=== PATIENT | male | born 1945 | race Caucasian/White ===

== ENCOUNTER 2019-07-12 19:04 | Emergency (ER) | payer MEDICARE ==
[~2019-07-12] VITALS: Ht 180.3 cm; Wt 95.0 kg
[2019-07-12] MEDS ORDERED: LIDOCAINE-MPF 1%, 5ML ONE (20:19)
[2019-07-12] MEDS ORDERED: DIPH,PERTUSS(ACELL),TET VAC/PF 0.5 ML IM-VACC ONE ×2 (20:30)
[2019-07-12] MEDS ORDERED: LIDOCAINE 1%, 10ML INFIL ONE (20:30)
--- NOTE | 2019-07-12 20:40 | NUR ---
PTS EXPRESSED CONCERN ABOUT THE PTS HEALTH HE IS A DAILY HEAVY DRINKER. THIS WAS DISCUSSED WITH PA. AWAITING ORDERS.
[2019-07-12 20:54] LABS: BASOPHILS # (AUTO) 0.06 x10^3/uL (0-0.1); BASOPHILS % (AUTO) 1 % (0-1); EOSINOPHILS # (AUTO) 0.16 x10^3/uL (0-0.4); EOSINOPHILS % (AUTO) 1 % (1-7); LYMPHOCYTES # (AUTO) 2.37 x10^3/uL (1-3.4); LYMPHOCYTES % (AUTO) 19 % (22-44); MD NO; MEAN CORPUSCULAR HEMOGLOBIN 33.1 pg (27.5-34.5); MEAN CORPUSCULAR HGB CONC 33.8 g/dL (33.2-36.2); MEAN CORPUSCULAR VOLUME 98.1 fL (81-97); MEAN PLATELET VOLUME 6.5 fL (7.4-10.4); MONOCYTES # (AUTO) 0.98 x10^3/uL (0.2-0.8); MONOCYTES % (AUTO) 8 % (2-9); NEUTROPHILS # (AUTO) 8.97 x10^3/uL (1.8-6.8); NEUTROPHILS % (AUTO) 72 % (42-75); PLATELET COUNT 294 x10^3/uL (130-400); RED BLOOD COUNT 4.87 x10^6/uL (4.38-5.82); RED CELL DISTRIBUTION WIDTH 13.1 % (9.4-14.8)
[2019-07-12 21:04] LABS: ALANINE AMINOTRANSFERASE 42 U/L (12-78); ALBUMIN 3.8 g/dL (3.4-5.0); ANION GAP 7 mmol/L (5-15); CALCIUM 8.1 mg/dL (8.5-10.1); CHLORIDE 107 mmol/L (98-107); CREATININE 0.72 mg/dL (0.7-1.3)
[2019-07-12 21:05] LABS: INTERNATIONAL NORMALIZED RATIO 1.09 (0.93-1.1); PROTHROMBIN TIME 11.4 Seconds (9.6-11.5)
[2019-07-12 21:07] LABS: ALKALINE PHOSPHATASE 61 U/L (45-117); BILIRUBIN,TOTAL 0.5 mg/dL (0.2-1.0)
--- NOTE | 2019-07-12 21:13 | NUR ---
PA AT BEDSIDE FOR SUTURES
--- NOTE | 2019-07-12 21:44 | NUR ---
PT UP FOR RECHECK AT THIS TIME.
--- NOTE | 2019-07-12 22:00 | NUR ---
PT REQUESTING TO LEAVE. PT MD NEED ROAD TEST. PT ROADTESTED AND PASSED. POC DISCUSSED. AWAITING DC PAPERWORK
[2019-07-12 22:07] VITALS: BP 139/88
== END 2019-07-12 22:09 | disposition home or self-care (01) ==
LOC: ED 22:02
DX: S01.81XA Laceration without foreign body of other part of head, initial encounter (principal); E78.00 Pure hypercholesterolemia, unspecified; I10 Essential (primary) hypertension; F10.220 Alcohol dependence with intoxication, uncomplicated; F17.200 Nicotine dependence, unspecified, uncomplicated; W01.0XXA Fall on same level from slipping, tripping and stumbling without subsequent striking against object, initial encounter; Y93.89 Activity, other specified; Y92.410 Unspecified street and highway as the place of occurrence of the external cause; Y99.8 Other external cause status
CPT/HCPCS: 12051; 36415; 80053; 80307; 85025; 85610; 85730; 90471; 90715; 93005

== ENCOUNTER → 2020-03-20 | Outpatient (CLI) | payer MEDICARE | END | disposition home or self-care (01) | LOC: CVU 14:32 | PROVIDERS: ATTEND Family Medicine | DX: I73.9 Peripheral vascular disease, unspecified (principal); I10 Essential (primary) hypertension; E78.5 Hyperlipidemia, unspecified; R20.0 Anesthesia of skin | CPT/HCPCS: 93922 ==

== ENCOUNTER → 2020-05-13 | Outpatient (CLI) | payer MEDICARE | END | disposition home or self-care (01) | LOC: CVU 12:20 | PROVIDERS: ATTEND Internal Medicine Clinical Cardiac Electrophysiology | DX: I11.9 Hypertensive heart disease without heart failure (principal); E78.00 Pure hypercholesterolemia, unspecified; I65.23 Occlusion and stenosis of bilateral carotid arteries; Z72.0 Tobacco use | CPT/HCPCS: 93306; 93356; 93880; 93978 ==

== ENCOUNTER 2020-06-16 12:52 | Outpatient (CLI) | payer MEDICARE | END 2020-06-16 23:59 | disposition home or self-care (01) | LOC: CFH 12:52 | PROVIDERS: ATTEND Internal Medicine Clinical Cardiac Electrophysiology | DX: I10 Essential (primary) hypertension (principal); R60.9 Edema, unspecified; Z72.0 Tobacco use | CPT/HCPCS: 78452; 93017; A9502 ==

== ENCOUNTER 2021-02-09 04:36 | Emergency (ER) | payer MEDICARE ==
[~2021-02-09] VITALS: Ht 182.9 cm; Wt 100.0 kg
[2021-02-09 05:18] LABS: BASOPHILS % (AUTO) 1 % (0-1); EOSINOPHILS % (AUTO) 2 % (1-7); LYMPHOCYTES % (AUTO) 30 % (22-44); MEAN CORPUSCULAR HEMOGLOBIN 32.5 pg (27.5-34.5); MEAN CORPUSCULAR HGB CONC 34.7 g/dL (33.2-36.2); MONOCYTES % (AUTO) 11 % (2-9); NEUTROPHILS % (AUTO) 57 % (42-75); PLATELET COUNT 223 x10^3/uL (130-400); RED BLOOD COUNT 4.88 x10^6/uL (4.38-5.82); RED CELL DISTRIBUTION WIDTH 13.5 % (9.4-14.8)
[2021-02-09 05:19] LABS: MD NO
[2021-02-09 05:30] LABS: ALANINE AMINOTRANSFERASE 70 U/L (12-78); ALBUMIN 3.6 g/dL (3.4-5.0); ANION GAP 11 mmol/L (5-15); CALCIUM 7.9 mg/dL (8.5-10.1); CHLORIDE 105 mmol/L (98-107)
[2021-02-09 05:33] LABS: ALKALINE PHOSPHATASE 50 U/L (45-117); BILIRUBIN,TOTAL 0.4 mg/dL (0.2-1.0); CREATININE 0.68 mg/dL (0.7-1.3); TOTAL PROTEIN 6.6 g/dL (6.4-8.2)
--- NOTE | 2021-02-09 06:16 | NUR ---
PT AMBULATED AROUND ROOM, PT FRIEND SAID HE IS STAYING WITH PT AT HIS HOME. PT A/O X4 AND REQ TO LEAVE
[2021-02-09 06:17] VITALS: BP 135/77
== END 2021-02-09 06:19 | disposition home or self-care (01) ==
LOC: ED 06:17
DX: F10.120 Alcohol abuse with intoxication, uncomplicated (principal); I10 Essential (primary) hypertension; Y90.0 Blood alcohol level of less than 20 mg/100 ml
CPT/HCPCS: 36415; 80053; 80320; 85025; 99283; G0480

== ENCOUNTER 2021-05-28 17:39 | Outpatient (CLI) | payer MEDICARE ==
[2021-05-28 18:29] LABS: BASOPHILS % (AUTO) 1 % (0-1); EOSINOPHILS % (AUTO) 2 % (1-7); LYMPHOCYTES % (AUTO) 26 % (22-44); MEAN CORPUSCULAR HEMOGLOBIN 32.9 pg (27.5-34.5); MEAN CORPUSCULAR HGB CONC 34.7 g/dL (33.2-36.2); MEAN PLATELET VOLUME 7.2 fL (7.4-10.4); MONOCYTES % (AUTO) 11 % (2-9); NEUTROPHILS % (AUTO) 60 % (42-75); PLATELET COUNT 235 x10^3/uL (130-400); RED CELL DISTRIBUTION WIDTH 13.6 % (9.4-14.8)
[2021-05-28 18:38] LABS: ALANINE AMINOTRANSFERASE 44 U/L (12-78); ALBUMIN 3.5 g/dL (3.4-5.0); ANION GAP 3 mmol/L (5-15); CALCIUM 8.8 mg/dL (8.5-10.1); CHLORIDE 109 mmol/L (98-107); CREATININE 0.89 mg/dL (0.7-1.3)
[2021-05-28 18:49] LABS: ALKALINE PHOSPHATASE 56 U/L (45-117); BILIRUBIN,TOTAL 1.1 mg/dL (0.2-1.0); CHOL/HDL RATIO 3.9; CHOLESTEROL, TOTAL 191 mg/dL (140-239); HDL CHOL % 26 % (26-37); HDL CHOLESTEROL (DIRECT) 49 mg/dL (40-60); LDL CHOLESTEROL,CALCULATED 118 mg/dL (54-169); LDL/HDL RATIO 2.4 (0.5-3.0); TOTAL PROTEIN 7.1 g/dL (6.4-8.2); TRIGLYCERIDES 120 mg/dL (50-200); VLDL CHOLESTEROL 24 mg/dL (0-25)
== END 2021-05-28 23:59 | disposition home or self-care (01) ==
LOC: LAB 17:39
PROVIDERS: ATTEND Family Medicine
DX: Z00.01 Encounter for general adult medical examination with abnormal findings (principal)
CPT/HCPCS: 36415; 80053; 80061; 83036; 84153; 84443; 85025; 86803